=== PATIENT | female | born 1985 | race Caucasian/White ===

== ENCOUNTER 2017-05-11 14:06 | Inpatient (IN) | payer BC ==
[~2017-05-11] VITALS: Ht 167.6 cm; Wt 97.9 kg
[2017-05-11] VITALS (11 sets, daily range): BP systolic 103–137; BP diastolic 51–83
[2017-05-11] MEDS ORDERED: PRENATAL TABLE1 EAC3 PO (15:09)
[2017-05-11] MEDS ORDERED: ALIGN4 MG PO (15:11)
[2017-05-11 15:41] LABS: EOSINOPHIL (%) 0.9 % (0-5); EOSINOPHIL COUNT 0.1 K/uL (0-0.3); HEMATOCRIT 32.7 % (36.0-46.0); IMMATURE GRANULOCYTE (%) 0.8 % (0.0-0.7); IMMATURE GRANULOCYTE COUNT 0.1 K/uL; INSTRUMENT ABS NEUTROPHIL CT 7.7 K/uL; LYMPHOCYTE COUNT 1.6 K/uL (1.0-2.8); MCH 31.8 PG (29.0-34.0); MCHC 34.9 G/DL (30.0-36.0); MCV 91.3 FL (83-99); MEAN PLAT.VOLUME 9.7 uM^3 (9.5-12.4); MONOCYTE (%) 6.1 % (3-12); MONOCYTE COUNT 0.6 K/uL (0-0.8); NEUTROPHIL (%) 76.2 % (45-76); NEUTROPHIL COUNT 7.7 K/uL (1.8-6.4); PLATELET COUNT 238 K/uL (156-360); RBC DIS.WIDTH-CV 13.5 % (11.8-14.6); RBC DIS.WIDTH-SD 45.2 % (39-53); RED BLOOD COUNT 3.58 M/uL (3.80-5.20)
[2017-05-12] VITALS (33 sets, daily range): BP systolic 80–159; BP diastolic 43–113
[2017-05-12] MEDS ORDERED: ENDOCET 5-3251 EACH PO (23:27)
[2017-05-12] MEDS ORDERED: IBUPROFEN800 MG PO (23:27)
[2017-05-13] VITALS (8 sets, daily range): BP systolic 103–124; BP diastolic 51–74
[2017-05-13 07:16] LABS: EOSINOPHIL (%) 0.1 % (0-5); HEMATOCRIT 25.4 % (36.0-46.0); IMMATURE GRANULOCYTE (%) 0.8 % (0.0-0.7); IMMATURE GRANULOCYTE COUNT 0.1 K/uL; LYMPHOCYTE COUNT 1.3 K/uL (1.0-2.8); MCH 32.2 PG (29.0-34.0); MCHC 34.3 G/DL (30.0-36.0); MCV 94.1 FL (83-99); MEAN PLAT.VOLUME 9.8 uM^3 (9.5-12.4); MONOCYTE (%) 6.1 % (3-12); MONOCYTE COUNT 0.8 K/uL (0-0.8); NEUTROPHIL (%) 83.2 % (45-76); PLATELET COUNT 203 K/uL (156-360); RBC DIS.WIDTH-CV 13.8 % (11.8-14.6); RBC DIS.WIDTH-SD 46.6 % (39-53); WHITE BLOOD COUNT 13.2 K/uL (4.1-10.2)
[2017-05-14 03:00] VITALS: BP 122/58
[2017-05-14 15:05] VITALS: BP 135/75
[2017-05-14 19:16] VITALS: BP 117/67
[2017-05-14 23:00] VITALS: BP 117/71
[2017-05-15 10:56] LABS: EOSINOPHIL (%) 3.2 % (0-5); EOSINOPHIL COUNT 0.3 K/uL (0-0.3); HEMATOCRIT 24.5 % (36.0-46.0); IMMATURE GRANULOCYTE (%) 1.2 % (0.0-0.7); IMMATURE GRANULOCYTE COUNT 0.1 K/uL; INSTRUMENT ABS NEUTROPHIL CT 5.9 K/uL; LYMPHOCYTE COUNT 1.5 K/uL (1.0-2.8); MCH 32.7 PG (29.0-34.0); MCHC 34.3 G/DL (30.0-36.0); MCV 95.3 FL (83-99); MEAN PLAT.VOLUME 9.6 uM^3 (9.5-12.4); MONOCYTE (%) 5.9 % (3-12); MONOCYTE COUNT 0.5 K/uL (0-0.8); NEUTROPHIL (%) 71.2 % (45-76); NEUTROPHIL COUNT 5.9 K/uL (1.8-6.4); PLATELET COUNT 221 K/uL (156-360); RBC DIS.WIDTH-SD 47.7 % (39-53); RED BLOOD COUNT 2.57 M/uL (3.80-5.20); WHITE BLOOD COUNT 8.3 K/uL (4.1-10.2)
[2017-05-15] MEDS ORDERED: SLOW RELEASE I160 MG PO (17:02)
== END 2017-05-15 18:40 | disposition home or self-care (01) | DRG 766 ==
LOC: LDRP-OP 14:06 → 2WEST 14:07 → LDRP-OP 06-04 11:24
PROVIDERS: Nurse Practitioner; Obstetrics & Gynecology
DX: O61.9 Failed induction of labor, unspecified (principal); O48.0 Post-term pregnancy; D64.9 Anemia, unspecified; O12.04 Gestational edema, complicating childbirth; O33.9 Maternal care for disproportion, unspecified; O99.02 Anemia complicating childbirth; O62.1 Secondary uterine inertia; O62.0 Primary inadequate contractions; Z37.0 Single live birth; Z3A.40 40 weeks gestation of pregnancy
CPT/HCPCS: 85025; 86900; 86901; C1726; G0378; J0595; J0690; J2175; J2270; J2274; J2405; J3010; J7120